=== PATIENT | female | born 1960 | race Caucasian/White ===

== ENCOUNTER 2018-02-11 12:32 | Inpatient (IN) | payer OTHER ==
[~2018-02-11] VITALS: Ht 149.9 cm; Wt 113.0 kg
[~2018-02-11 12:32] MED LIST: ASPECOTC PO; CEPH500C2 PO; SULF800T23 PO
[2018-02-11] MEDS ORDERED: SODIUM CHLORIDE 0.9% 500ML 500 ML IV STA ×2 (13:15→15:11)
[2018-02-11] MEDS ORDERED: ALBUT/IPRATROP 3MG/0.5MG NEB 3 ML VIAL INH STA (13:15)
--- NOTE | 2018-02-11 13:51 | EMERGENCY ROOM VISIT NOTE ---
History First contact with patient: 13:00 Chief Complaint: FEVER Stated Complaint: FEVER History of Present Illness The patient is a 58 year old female who presents to the Emergency Room with complaints of fever symptoms and weakness over the last 3 days. The patient was seen here on February 07. She had a boil lanced in between her right thumb and index finger. She was prescribed Keflex and Bactrim, which she thinks is making her feel ill. She stopped the medication 2 days ago. She continues to feel not well. She has not been eating well. She has had mild nausea. She also reports a headache, which is unusual for her. She has not tried anything [id number] for pain. She has not taken her temperature at home. This is not the worst headache of her life. She denies any chest pain or shortness of breath. No abdominal pain. Review of Systems 10 system review performed and negative unless noted in HPI or below Past Medical/Surgical History History of CVA Social History Smoking Status: Current Every Day Smoker Housing Status: lives alone Occupation Status: retired Current/Historical Medications Scheduled Aspirin (Aspirin), 325 MG PO DAILY Cephalexin Monohydrate (Keflex), 500 MG PO TID Sulfa/Trimethoprim (Bactrim Ds 800MG/160MG), 1 TAB PO BID Physical Exam Vital Signs Date Time Temp Pulse Resp B/P (MAP) Pulse Ox O2 Delivery O2 Flow Rate FiO2 02/11/18 16:32 96 16 114/68 94 Room Air 02/11/18 15:02 89 21 123/66 96 Room Air 02/11/18 14:17 87 16 99 02/11/18 14:14 85 02/11/18 14:10 106/65 02/11/18 12:39 37.3 97 20 116/62 93 Room Air Physical Exam VITALS: Vitals are noted on the nurse's note and reviewed by myself. Vital signs stable. GENERAL: 58-year-old female, in no acute distress, nondiaphoretic, well- developed well-nourished. SKIN: Well-healing incision noted to the webspace between the right thumb and right index finger. No erythematous streaking noted.. HEAD: Normocephalic atraumatic. EYES: Pupils equal round and reactive to light and accommodation. Conjunctivae without injection, sclerae without icterus. Extraocular movements intact. . MOUTH: Mucous membranes slightly dry NECK: Supple without nuchal rigidity. No lymphadenopathy. Cervical spine is nontender. No JVD. HEART: Regular rate and rhythm without murmurs gallops or rubs. LUNGS: Rhonchorous breath sounds bilaterally. Mild use. No crackles at the bases. Mild tachypnea noted. ABDOMEN: Positive bowel sounds x 4.Soft, nontender, without organomegaly. No guarding or rebound tenderness. MUSCULOSKELETAL: No muscle atrophy, erythema, or edema noted. Strength 5/5 throughout. NEURO: Patient was alert and oriented to person place and time. Cranial nerves grossly intact. Cerebellar function intact. Normal sensation to touch. No focal neurological deficits. Medical Decision & Procedures ER Provider Diagnostic Interpretation: CT of the head without contrast IMPRESSION: No acute intracranial findings. Electronically signed by: Bubba Pulido M.D. 02/11/2018 3:03 PM Chest x-ray IMPRESSION: No acute process. The above report was generated using voice recognition software. It may contain grammatical, syntax or spelling errors. Electronically signed by: Mynor Cevallos M.D. 02/11/2018 2:21 PM Laboratory Results 02/11/18 14:06 Red Blood Count 5.00, Mean Corpuscular Volume 87.2, Mean Corpuscular Hemoglobin 30.0, Mean Corpuscular Hemoglobin Concent 34.4, Mean Platelet Volume 10.8, Neutrophils (%) (Auto) 65.9, Lymphocytes (%) (Auto) 21.6, Monocytes (%) (Auto) 11.8, Eosinophils (%) (Auto) 0.0, Basophils (%) (Auto) 0.3, Neutrophils # (Auto ) 7.64, Lymphocytes # (Auto) 2.50, Monocytes # (Auto) 1.37, Eosinophils # (Auto ) 0.00, Basophils # (Auto) 0.04 02/11/18 14:06 Test 02/11/18 14:06 02/11/18 16:15 White Blood Count 11.60 K/uL (4.8-10.8) Red Blood Count 5.00 M/uL (4.2-5.4) Hemoglobin 15.0 g/dL (12.0-16.0) Hematocrit 43.6 % (37-47) Mean Corpuscular Volume 87.2 fL (80-100) Mean Corpuscular Hemoglobin 30.0 pg (25-34) Mean Corpuscular Hemoglobin Concent 34.4 g/dl (32-36) Platelet Count 216 K/uL (130-400) Mean Platelet Volume 10.8 fL (7.4-10.4) Neutrophils (%) (Auto) 65.9 % Lymphocytes (%) (Auto) 21.6 % Monocytes (%) (Auto) 11.8 % Eosinophils (%) (Auto) 0.0 % Basophils (%) (Auto) 0.3 % Neutrophils # (Auto) 7.64 K/uL (1.4-6.5) Lymphocytes # (Auto) 2.50 K/uL (1.2-3.4) Monocytes # (Auto) 1.37 K/uL (0.11-0.59) Eosinophils # (Auto) 0.00 K/uL (0-0.5) Basophils # (Auto) 0.04 K/uL (0-0.2) RDW Standard Deviation 43.3 fL (36.4-46.3) RDW Coefficient of Variation 13.6 % (11.5-14.5) Immature Granulocyte % (Auto) 0.4 % Immature Granulocyte # (Auto) 0.05 K/uL (0.00-0.02) Anion Gap 9.0 mmol/L (3-11) Estimated GFR () 85.7 Estimated GFR (Non- 73.9 BUN/Creatinine Ratio 10.0 (10-20) Calcium Level 9.0 mg/dl (8.5-10.1) Total Bilirubin 0.6 mg/dl (0.2-1) Aspartate Amino Transf (AST/SGOT) 22 U/L (15-37) Alanine Aminotransferase (ALT/SGPT) 31 U/L (12-78) Alkaline Phosphatase 54 U/L (45-117) Troponin I < 0.015 ng/ml (0-0.045) Total Protein 8.4 gm/dl (6.4-8.2) Albumin 3.6 gm/dl (3.4-5.0) Globulin 4.8 gm/dl (2.5-4.0) Albumin/Globulin Ratio 0.8 (0.9-2) Urine Color YELLOW Urine Appearance CLOUDY (CLEAR) Urine pH 5.5 (4.5-7.5) Urine Specific [place] 1.018 (1.000-1.030) Urine Protein NEG (NEG) Urine Glucose (UA) NEG (NEG) Urine Ketones 1+ (NEG) Urine Occult Blood 1+ (NEG) Urine Nitrite NEG (NEG) Urine Bilirubin NEG (NEG) Urine Urobilinogen NEG (NEG) Urine Leukocyte Esterase NEG (NEG) Urine WBC (Auto) 1-5 /hpf (0-5) Urine RBC (Auto) 0-4 /hpf (0-4) Urine Hyaline Casts (Auto) 1-5 /lpf (0-5) Urine Epithelial Cells (Auto) >30 /lpf (0-5) Urine Bacteria (Auto) NEG (NEG) Urine Pathogenic Casts /lpf (0) Medications Administered Medications (Trade) Dose Ordered Sig/Dequan Route Start Time Stop Time Status Last Admin Dose Admin Sodium Chloride 500 ml @ 999 mls/hr Q31M STAT IV 02/11/18 13:15 02/11/18 13:45 DC 02/11/18 14:14 999 MLS/HR Albuterol/ Ipratropium (Duoneb) 3 ml ONE STAT INH 02/11/18 13:15 02/11/18 13:18 DC 02/11/18 14:12 3 ML Sodium Chloride 500 ml @ 999 mls/hr Q31M STAT IV 02/11/18 15:11 02/11/18 15:41 DC 02/11/18 15:11 999 MLS/HR Nicotine (Nicoderm Cq 21MG Patch) 1 patch ONE STAT TD 02/11/18 16:24 02/11/18 16:25 DC 02/11/18 16:31 1 PATCH ECG Per My Interpretation Indication: weakness Rate (beats per minute): 82 Rhythm: normal sinus Comparison ECG Date: no prior available ED Course Patient was seen and examined Vital signs including blood pressure were reviewed medications list was verified with patient Labs were obtained, and a saline lock was established The patient was hydrated with 500 cc of normal saline. She was given a DuoNeb. Imaging was performed and reviewed The patient was reassessed. We discussed her workup. She voiced understanding. She was ordered an additional normal saline 500 cc bolus. The case was also discussed with my supervising physician who personally evaluated the patient I discussed the case with case management and subsequently the [facility] hospitalist service. They kindly agreed to evaluate the patient for further treatment/possible admission Medical Decision Differential diagnosis: Adverse medication reaction, nausea, dehydration, intracranial abnormality, infectious etiology, cardiac ischemia, hypoxia among others were considered This patient is a 58-year-old female presents to the emergency department complaining of malaise and weakness for the last several days. She was also complaining of a headache. She recently had an infection opened up on her right hand. On exam, her hand is healing well. She was afebrile. She is not hypoxic. She did have significant rhonchorous breath sounds-she is a 1 pack per day smoker. She was neurologically intact. I ordered a CT of the head. This had no acute findings. Labs reveal hyponatremia. She also has a small white count. The etiology of these is unclear. Given the patient's symptoms and sodium, I thought the patient should be evaluated for possible admission to the hospital. She is in agreement. This chart was completed in part utilizing [employer] Speech Voice Recognition software. Attempts were made to minimize the grammatical errors, random word insertions, pronoun errors and incomplete sentences. Any formal questions or concerns about the content, text or information contained within the body of this dictation should be directly addressed to the provider for clarification. Medication Reconcilliation Current Medication List: was personally reviewed by me Blood Pressure Screening Patient's blood pressure: Normal blood pressure Consults Consulting Physician: [facility] Impression Primary Impression: Hyponatremia Departure Information Referrals Tramaine Bautista D.O. (PCP) Patient Instructions My [facility]
--- NOTE | 2018-02-11 14:22 | DIAGNOSTIC IMAGING REPORT ---
CHEST ONE VIEW PORTABLE HISTORY: 58 years-old Female rhonchi weakness acute weakness COMPARISON: None available TECHNIQUE: Portable AP view of the chest FINDINGS: Cardiomediastinal and hilar silhouettes are within normal limits. No pneumothorax, pleural effusion, focal airspace consolidation or overt pulmonary edema. Bones of the chest appear grossly intact. Fusion hardware of the lower cervical spine. IMPRESSION: No acute process. The above report was generated using voice recognition software. It may contain grammatical, syntax or spelling errors. Electronically signed by: Mynor Cevallos M.D. 02/11/2018 2:21 PM Dictated Date/Time: 02/11/2018 2:20 PM
[2018-02-11 14:34] LABS: BASO % 0.3 %; BASO ABS # 0.04 K/uL (0-0.2); HEMATOCRIT 43.6 % (37-47); IG# 0.05 K/uL (0.00-0.02); LYMPH % 21.6 %; MEAN CELL VOLUME 87.2 fL (80-100); MEAN CORPUSCULAR HGB CONC 34.4 g/dl (32-36); MEAN PLATELET VOLUME 10.8 fL (7.4-10.4); MONO % 11.8 %; MONO ABS # 1.37 K/uL (0.11-0.59); NEUT % 65.9 %; NEUT ABS # 7.64 K/uL (1.4-6.5); PLATELET COUNT 216 K/uL (130-400); RED CELL DISTRIBUTION WIDTH CV 13.6 % (11.5-14.5); RED CELL DISTRIBUTION WIDTH SD 43.3 fL (36.4-46.3)
[2018-02-11 15:02] LABS: ALBUMIN 3.6 gm/dl (3.4-5.0); ALKALINE PHOSPHATASE 54 U/L (45-117); ALT/SGPT 31 U/L (12-78); AST/SGOT 22 U/L (15-37); BLOOD UREA NITROGEN 9 mg/dl (7-18); CARBON DIOXIDE 25 mmol/L (21-32); CREATININE 0.86 mg/dl (0.60-1.20); GLUCOSE 124 mg/dl (70-99); POTASSIUM 3.9 mmol/L (3.5-5.1); SODIUM 129 mmol/L (136-145); TOTAL PROTEIN 8.4 gm/dl (6.4-8.2)
--- NOTE | 2018-02-11 15:05 | DIAGNOSTIC IMAGING REPORT ---
CT OF THE HEAD WITHOUT CONTRAST CLINICAL HISTORY: Headache. Evaluate for cerebrovascular accident. COMPARISON STUDY: No previous studies for comparison. CT DOSE: 638.56 mGycm TECHNIQUE: Helical axial images of the head were obtained without IV contrast. Automated exposure control was utilized for the study. A dose lowering technique was utilized adhering to the principles of ALARA. FINDINGS: No acute intracranial hemorrhage, midline shift or mass effect is present. Ventricular system is normal. Basilar cisterns are patent. There are no extra-axial collections. Kirby-white differentiation is maintained. There are no findings to suggest acute dural sinus thrombosis or acute territorial infarct. There are no significant calvarial abnormalities. Visualized portions of the sinuses and mastoid air cells are clear. IMPRESSION: No acute intracranial findings. Electronically signed by: Bubba Pulido M.D. 02/11/2018 3:03 PM Dictated Date/Time: 02/11/2018 2:57 PM
[2018-02-11] MEDS ORDERED: NICOTINE 21 MG/24 HR TDSY TD STA (16:24)
--- NOTE | 2018-02-11 17:00 | EMERGENCY ROOM VISIT NOTE ---
ED Visit Note First contact with patient: 13:00 Patient was seen by our PA/BROOM HANDLE DIPPER. I was involved in the patient's care and did evaluate the patient myself. I was involved in the care throughout the ER stay. Patient presents weak. She has a white count elevation and a low sodium. She does live independently and is not able to care for herself in her current situation, a hospital stay is warranted. She needs IV hydration and further workup.
[2018-02-11] MEDS ORDERED: ALBUTEROL 0.083% NEBU SOLN 3 ML VIAL INH PRN (18:00)
[2018-02-11] MEDS ORDERED: ONDANSETRON INJ 2 MG/ML 2 ML VIAL IV PRN (18:00)
[2018-02-11] MEDS ORDERED: LEVOFLOXACIN 250 MG TAB PO STA (18:05)
--- NOTE | 2018-02-11 18:10 | History and Physical ---
History & Physical Date & Time of Service: Feb 11, 2018 at 17:55 Chief Complaint: FEVER Primary Care Physician: Tramaine Bautista D.O. History of Present Illness Source: patient She is a 58-year-old obese female with significant past medical history of toe kyphosis with multiple joint surgery in the past and apparently she was seen in ER last for a hand while which was drained and she was put on oral Keflex and Bactrim. She took the medicine for 3 days neuro and she was not feeling any better, complaining of increasing weakness tiredness and passing more urine without any dysuria she also complained to have feverish feeling with sweating at times and pain in multiple joints and also headache associated with it. She continues to smoke and she has cough,nonproductive with wheezing at times. In the ER she was afebrile with minimal elevated white count and unremarkable chest x-ray and/or in the examination but her sodium was noted to be 129. From that point she was admitted to medical floor for continuation of care with the possible diagnosis of acute bronchitis on top of hyponatremia. Past Medical/Surgical History Medical Problems: (1) Abscess of right hand (2) Acute bronchitis (3) Generalized weakness Social History Smoking Status: Current Every Day Smoker Smokeless Tobacco Use: No Alcohol Use: occasionally Drug Use: none Marital Status: Housing status: lives alone Occupational Status: retired Immunizations History of Influenza Vaccine: Unknown History of Tetanus Vaccine?: Unknown History of Pneumococcal: Unknown History of Hepatitis B Vaccine: Unknown Allergies Coded Allergies: Sulfamethoxazole w/Trimethoprim (Unverified Adverse Reaction, Unknown, /, 02/11/18) made patient very ill Home Medications Scheduled Aspirin (Aspirin), 325 MG PO DAILY Cephalexin Monohydrate (Keflex), 500 MG PO TID Sulfa/Trimethoprim (Bactrim Ds 800MG/160MG), 1 TAB PO BID Review of Systems Constitutional: + fever, + weakness Respiratory: + cough, + wheezing, + shortness of breath Genitourinary - Female: + urinary frequency Neurologic: + weakness (legs) Endocrine: + excessive urination Physical Exam Vital Signs Date Time Temp Pulse Resp B/P (MAP) Pulse Ox O2 Delivery O2 Flow Rate FiO2 02/11/18 16:32 96 16 114/68 94 Room Air 02/11/18 15:02 89 21 123/66 96 Room Air 02/11/18 14:17 87 16 99 02/11/18 14:14 85 02/11/18 14:10 106/65 02/11/18 12:39 37.3 97 20 116/62 93 Room Air General Appearance: + mild distress Head: normocephalic Eyes: normal inspection ENT: normal ENT inspection Neck: supple, no adenopathy, thyroid normal Respiratory/Chest: + decreased breath sounds, + rhonchi, + wheezing Cardiovascular: regular rate, rhythm Abdomen/GI: normal bowel sounds, non tender Back: normal inspection Extremities/Musculoskelatal: + pedal edema (Bilateral Lymphedema) Neurologic/Psych: normal mood/affect, normal reflexes Skin: normal color Lymphatic: no adenopathy Diagnostics Laboratory Results Results Past 24 Hours Test 02/11/18 14:06 02/11/18 15:23 02/11/18 16:15 Range/Units White Blood Count 11.60 4.8-10.8 K/uL Red Blood Count 5.00 4.2-5.4 M/uL Hemoglobin 15.0 12.0-16.0 g/dL Hematocrit 43.6 37-47 % Mean Corpuscular Volume 87.2 80-100 fL Mean Corpuscular Hemoglobin 30.0 25-34 pg Mean Corpuscular Hemoglobin Concent 34.4 32-36 g/dl Platelet Count 216 130-400 K/uL Mean Platelet Volume 10.8 7.4-10.4 fL Neutrophils (%) (Auto) 65.9 % Lymphocytes (%) (Auto) 21.6 % Monocytes (%) (Auto) 11.8 % Eosinophils (%) (Auto) 0.0 % Basophils (%) (Auto) 0.3 % Neutrophils # (Auto) 7.64 1.4-6.5 K/uL Lymphocytes # (Auto) 2.50 1.2-3.4 K/uL Monocytes # (Auto) 1.37 0.11-0.59 K/uL Eosinophils # (Auto) 0.00 0-0.5 K/uL Basophils # (Auto) 0.04 0-0.2 K/uL RDW Standard Deviation 43.3 36.4-46.3 fL RDW Coefficient of Variation 13.6 11.5-14.5 % Immature Granulocyte % (Auto) 0.4 % Immature Granulocyte # (Auto) 0.05 0.00-0.02 K/uL Sodium Level 129 136-145 mmol/L Potassium Level 3.9 3.5-5.1 mmol/L Chloride Level 95 98-107 mmol/L Carbon Dioxide Level 25 21-32 mmol/L Anion Gap 9.0 3-11 mmol/L Blood Urea Nitrogen 9 7-18 mg/dl Creatinine 0.86 0.60-1.20 mg/dl Estimated GFR () 85.7 Estimated GFR (Non- 73.9 BUN/Creatinine Ratio 10.0 10-20 Random Glucose 124 70-99 mg/dl Calcium Level 9.0 8.5-10.1 mg/dl Total Bilirubin 0.6 0.2-1 mg/dl Aspartate Amino Transf (AST/SGOT) 22 15-37 U/L Alanine Aminotransferase (ALT/SGPT) 31 12-78 U/L Alkaline Phosphatase 54 45-117 U/L Troponin I < 0.015 0-0.045 ng/ml Total Protein 8.4 6.4-8.2 gm/dl Albumin 3.6 3.4-5.0 gm/dl Globulin 4.8 2.5-4.0 gm/dl Albumin/Globulin Ratio 0.8 0.9-2 Urine Color YELLOW Urine Appearance CLOUDY CLEAR Urine pH 5.5 4.5-7.5 Urine Specific [place] 1.018 1.000-1.030 Urine Protein NEG NEG Urine Glucose (UA) NEG NEG Urine Ketones 1+ NEG Urine Occult Blood 1+ NEG Urine Nitrite NEG NEG Urine Bilirubin NEG NEG Urine Urobilinogen NEG NEG Urine Leukocyte Esterase NEG NEG Urine WBC (Auto) 1-5 0-5 /hpf Urine RBC (Auto) 0-4 0-4 /hpf Urine Hyaline Casts (Auto) 1-5 0-5 /lpf Urine Epithelial Cells (Auto) >30 0-5 /lpf Urine Bacteria (Auto) NEG NEG Urine Pathogenic Casts 0 /lpf Microbiology Results 02/11/18 Blood Culture, Received Pending 02/11/18 Blood Culture, Received Pending 02/11/18 Urine Culture, Received Pending Diagnostic Radiology CT of the Head-negative CXR normal Normal EKG Impression Assessment and Plan Hyponatremia She has been having polyuria but no dysuria Do not know that because for hyponatremia but may be related to back use of Bactrim Could be secondary to bronchitis with atypical organisms Will give adequate amount of intravenous fluid and monitor sodium level Fever with chills No acute infiltration on chest x-ray Has right basilar crackles more than the left Doubt any UTI with them unremarkable UA examination We will start Levaquin orally Status post I and D involving the right thumb and index finger web No surrounding inflammation and/or ulceration To 3 days of oral Keflex and Bactrim DS No more antibiotic for this. History of arthrogryposis with multiple joint surgery Patient is mobile with the wheelchair She has bilateral lymphedema as well Has been on aspirin 325 mg prevent any thrombosis Tobacco use disorder Advised to quit smoking We will put her on nicotine patch CODE STATUS; level 3, that is resuscitation without mechanical ventilation In my clinical assessment the beneficially meets criteria as per CMS for 2 midnights astay in the hospital Resuscitation Status VTE Prophylaxis Will order VTE Prophylaxis: Yes
[2018-02-11 18:41] LABS: INR 1.1 (0.9-1.1); PTT PATIENT 36.4 SECONDS (21.0-31.0)
[2018-02-11] MEDS: NSS + 20MEQ KCL 1000ML 1,000 ML IV SCH (21:06)
[2018-02-11] MEDS: HEPARIN SOD 5000 UNIT/0.5 ML CARP SQ SCH (21:54)
[2018-02-11] MEDS ORDERED: IV FLUIDS COMPLETED PRN (22:00)
[2018-02-11 22:58] VITALS: BP 160/74; PULSE 88; TEMP 38.2; O2SAT 94
[2018-02-12] MEDS ORDERED: LORAZEPAM 0.5 MG TAB PO ONE (02:00)
[2018-02-12] MEDS: ACETAMINOPHEN 325 MG TAB PO PRN (02:33)
[2018-02-12] MEDS: HEPARIN SOD 5000 UNIT/0.5 ML CARP SQ SCH ×3 (06:00→20:25)
[2018-02-12] MEDS: NSS + 20MEQ KCL 1000ML 1,000 ML IV SCH (06:12)
[2018-02-12 07:03] LABS: POTASSIUM RANDOM URINE 6.1 mEq/L
[2018-02-12 07:43] VITALS: BP 131/69; PULSE 77; TEMP 37; O2SAT 97
[2018-02-12 08:10] VITALS: O2SAT 97
[2018-02-12 08:19] LABS: HEMATOCRIT 42.5 % (37-47); MEAN CELL VOLUME 88.2 fL (80-100); MEAN CORPUSCULAR HGB CONC 32.9 g/dl (32-36); MEAN PLATELET VOLUME 10.4 fL (7.4-10.4); PLATELET COUNT 221 K/uL (130-400); RED CELL DISTRIBUTION WIDTH CV 13.6 % (11.5-14.5); RED CELL DISTRIBUTION WIDTH SD 44.3 fL (36.4-46.3); WHITE BLOOD COUNT 11.17 K/uL (4.8-10.8)
[2018-02-12] MEDS: ASPIRIN 325 MG ECTAB PO SCH (08:29)
[2018-02-12] MEDS: NICOTINE 14 MG/24 HR TDSY TD SCH (08:30)
[2018-02-12 08:47] LABS: BLOOD UREA NITROGEN 9 mg/dl (7-18); CALCIUM 8.2 mg/dl (8.5-10.1); CARBON DIOXIDE 27 mmol/L (21-32); CREATININE 0.71 mg/dl (0.60-1.20); GLUCOSE 89 mg/dl (70-99); SODIUM 136 mmol/L (136-145)
[2018-02-12] MEDS: LEVOFLOXACIN 500 MG TAB PO SCH (10:15)
[2018-02-12 15:46] VITALS: BP 153/85; PULSE 97; TEMP 38.2; O2SAT 94
--- NOTE | 2018-02-12 19:14 | Progress Note ---
Progress Note Date of Service Feb 12, 2018. Progress Note Subjective: Patient denies chest pain or acute shortness of breath. Patient denies abdominal pain. Patient reports previous symptoms primarily on admission of feeling weakness primarily and less functional than her baseline Physical exam General Appearance: no distress Head: normocephalic Eyes: normal inspection ENT: normal ENT inspection Neck: supple, midline trachea, no JVD Respiratory/Chest: fair air entry, no wheezing Cardiovascular: regular rate, rhythm Abdomen/GI: normal bowel sounds, non tender Back: normal inspection Extremities/Musculoskelatal: Bilateral Lymphedema Neurologic: awake and alert Assessment and Plan Hyponatremia admission serum sodium 129 and resolved after IV fluids. IV fluids stopped. Will repeat serum sodium tomorrow reports polyuria - has low urine osmolality on admission Reported fever and chills; generalized weakness patient's body temperature does not appear to meet criteria for low grade fevers but has been mildly above 100F there is a leukocytosis above 10,000; will send ESR, CRP empirically have been on Levaquin for possible bronchitis. No acute infiltration on admission chest x-ray; continue Levaquin for now blood cultures are pending results urine culture is negative Status post I and D involving the right thumb and index finger web previously; No surrounding inflammation and/or ulceration History of arthrogryposis with multiple joint surgery Patient is mobile with the wheelchair has bilateral lymphedema as well has been on aspirin 325 mg prevent any thrombosis Tobacco use disorder Advised to quit smoking nicotine patch social work discharge evaluation requested DVT ppx: heparin subcut CODE STATUS; level 3, that is resuscitation without mechanical ventilation
[2018-02-12 20:32] VITALS: BP 151/79; PULSE 86; TEMP 37.4; O2SAT 93
[2018-02-12 22:55] VITALS: BP 148/75; PULSE 86; TEMP 37.2; O2SAT 93
[2018-02-12] MEDS: LORAZEPAM 0.5 MG TAB PO PRN (23:39)
[2018-02-13] MEDS: HEPARIN SOD 5000 UNIT/0.5 ML CARP SQ SCH ×3 (06:00→20:31)
[2018-02-13 07:00] VITALS: BP 155/84; PULSE 83; TEMP 37.4; O2SAT 94
[2018-02-13] MEDS: ASPIRIN 325 MG ECTAB PO SCH (08:23)
[2018-02-13] MEDS: NICOTINE 14 MG/24 HR TDSY TD SCH (08:25)
[2018-02-13 09:24] LABS: BASO % 0.3 %; BASO ABS # 0.04 K/uL (0-0.2); EOS % 0.5 %; EOS ABS # 0.06 K/uL (0-0.5); HEMATOCRIT 39.4 % (37-47); HEMOGLOBIN 13.6 g/dL (12.0-16.0); IG# 0.06 K/uL (0.00-0.02); LYMPH % 24.5 %; LYMPH ABS # 2.97 K/uL (1.2-3.4); MEAN CELL VOLUME 86.8 fL (80-100); MEAN CORPUSCULAR HGB CONC 34.5 g/dl (32-36); MEAN PLATELET VOLUME 10.5 fL (7.4-10.4); MONO % 14.3 %; MONO ABS # 1.73 K/uL (0.11-0.59); NEUT % 59.9 %; NEUT ABS # 7.24 K/uL (1.4-6.5); PLATELET COUNT 251 K/uL (130-400); RED CELL DISTRIBUTION WIDTH CV 13.4 % (11.5-14.5); RED CELL DISTRIBUTION WIDTH SD 42.9 fL (36.4-46.3)
[2018-02-13 10:01] LABS: ALKALINE PHOSPHATASE 43 U/L (45-117); ALT/SGPT 24 U/L (12-78); AST/SGOT 17 U/L (15-37); BLOOD UREA NITROGEN 8 mg/dl (7-18); CALCIUM 8.5 mg/dl (8.5-10.1); CARBON DIOXIDE 25 mmol/L (21-32); CREATININE 0.63 mg/dl (0.60-1.20); GLUCOSE 87 mg/dl (70-99); POTASSIUM 3.5 mmol/L (3.5-5.1); SODIUM 129 mmol/L (136-145); TOTAL PROTEIN 7.4 gm/dl (6.4-8.2)
[2018-02-13] MEDS: LEVOFLOXACIN 500 MG TAB PO SCH (11:06)
[2018-02-13 12:03] VITALS: TEMP 37.1
[2018-02-13 13:45] LABS: HEMOGLOBIN A1C 7.6 % (4.5-5.6)
[2018-02-13 15:26] VITALS: BP 134/78; PULSE 75; TEMP 36.8; O2SAT 92
[2018-02-13] MEDS: ACETAMINOPHEN 325 MG TAB PO PRN ×2 (17:43→23:40)
--- NOTE | 2018-02-13 19:19 | Nephrology Consultation ---
Nephrology Consultation Date of Consultation: Feb 13, 2018. Attending Physician: Dr Agrawal Requesting Physician: Dr Agrawal Reason for Consultation: Hyponatremia History of Present Illness 58 year old female admitted 02/11 for evaluation of multiple complaints: weakness and subjective F at home with diffuse arthralgias/myalgias, report of increased urine output after starting keflex/bactrim on 02/07 in the wake of incision/debridement of R hand at [facility] ER. She comes from outside of our health system and so no prior labs for comparison. PMH includes active tobacco abuse, obesity, arthrogoryposis w/ chronic ambulatory dysfunction and as below. No labs were obtained on day of I&D. Her presenting sNa was 129 on 02/11; it improved to 136 on 02/12 w/ urine osms 117 on 02/[address] urine Na 23. Then today her sNa is 129 again. She had 2L NS w/ 20 mEq K until 02/12 AM; also 1L NS in ER as well. She takes asa 325 mg daily from prior to admission d/t hx of stroke 2 yrs ago at [facility]. No nsaid use. Past Medical/Surgical History Medical Problems: (1) Abscess of right hand Status: Acute (2) Hyponatremia Status: Acute -arthrogryposis >> chronic ambulatory dysfunction / w/c dependent -recent hand abscess I&D R thumb/ index finger web -active tobacco abuse -morbid obesity -stroke per pt which is why she's on asa 325 mg daily -chronic lymphedema Social History Smoking Status: Current Every Day Smoker Drug Use: none Marital Status: Housing Status: lives alone Occupation Status: retired Allergies Coded Allergies: Sulfamethoxazole w/Trimethoprim (Unverified Adverse Reaction, Unknown, /, 02/11/18) made patient very ill Medications Current Inpatient Medications Medications (Trade) Dose Ordered Sig/Dequan Route Start Time Stop Time Status Last Admin Dose Admin Heparin Sodium (Porcine) (Heparin Sq 5000 Unit/0.5ml) 5,000 unit Q8H SQ 02/11/18 22:00 03/13/18 21:59 Ondansetron HCl (Zofran Inj) 4 mg Q6H PRN IV 02/11/18 18:00 03/13/18 17:59 Aspirin (Ecotrin Tab) 325 mg DAILY PO 02/12/18 08:00 03/14/18 08:59 02/13/18 08:23 325 MG Levofloxacin (Levaquin Tab) 500 mg DAILY@11 PO 02/12/18 11:00 02/19/18 10:59 02/13/18 11:06 500 MG Albuterol Sulfate (Ventolin 0.083% 2.5MG/3ML Neb) 2.5 mg Q6R PRN INH 02/11/18 18:00 03/13/18 17:59 Nicotine (Nicoderm Cq 14MG Patch) 1 patch QAM TD 02/12/18 08:00 03/14/18 08:59 02/13/18 08:25 1 PATCH Miscellaneous (Remove Nicoderm Patch) 1 ea HS N/A 02/11/18 21:00 03/13/18 20:59 Miscellaneous (Iv Fluids Completed) 1 ea PRN PRN N/A 02/11/18 22:00 02/11/19 21:59 Acetaminophen (Tylenol Tab) 650 mg Q6H PRN PO 02/12/18 01:45 03/14/18 01:44 02/13/18 17:43 650 MG Lorazepam (Ativan Tab) 0.25 mg HS PRN PO 02/12/18 21:00 03/14/18 20:59 02/12/18 23:39 0.25 MG Home Meds and Scripts Medications Dose Route/Sig Max Daily Dose Days Date Category Aspirin 325 Mg Tab 325 Mg PO DAILY 02/07/18 Reported Bactrim Ds 800MG/160MG (Trimethoprim/Sulfamethoxazole) Tab 1 Tab PO BID 7 02/07/18 Rx Keflex (Cephalexin Monohydrate) 500 Mg Cap 500 Mg PO TID 7 02/07/18 Rx Review of Systems Constitutional: + problem reported (subjective fever, diffuse pain w/ mvt, photophobia, hyperesthesia) ENT: + pain on swallowing (sore throat) Respiratory: + cough (chronic stable nonproductive) Cardiac: + edema (stable chronic), No chest pain Abdomen: + constipation, No pain, No nausea, No vomiting Musculoskeletal: + joint pain, + muscle pain Female : + problem reported (c/o polyuria w/ increased po intake) Neuro: + weakness, + balance problems, No memory loss Psych: + anxiety Heme: No abnormal bleeding/bruising Endo: + fatigue Physical Exam Date Time Temp Pulse Resp B/P (MAP) Pulse Ox O2 Delivery O2 Flow Rate FiO2 02/13/18 16:00 Room Air 02/13/18 15:26 36.8 75 18 134/78 (96) 92 Room Air 02/13/18 12:03 37.1 02/13/18 07:45 Room Air 02/13/18 07:00 37.4 83 18 155/84 (107) 94 Room Air 02/12/18 22:55 37.2 86 18 148/75 (99) 93 Room Air 02/12/18 20:32 37.4 86 18 151/79 (103) 93 Room Air 02/12/18 20:00 Room Air 24-Hour Column 02/14/18 08:00 Intake Total 300 ml Balance 300 ml General Appearance: WD/WN, + mild distress (anxious), + obese, + pertinent finding (lying flat on RA, avoids mvt for exam) Eyes: EOMI ENT: hearing grossly normal Neck: supple Respiratory/Chest: no respiratory distress, + decreased breath sounds, + wheezing (scattered exp wheeze) Cardiovascular: regular rate, rhythm Abdomen: normal bowel sounds, non tender, soft, + pertinent finding (no miles) Extremities: + pedal edema, + swelling, + pertinent finding (joint deformities keya BL ankles/ knees) Neurologic/Psych: alert, oriented x 3, + pertinent finding (anxious) Skin: no jaundice, warm/dry, no rash Diagnostics Last 24 Hours Test 02/13/18 08:37 White Blood Count 12.10 K/uL Red Blood Count 4.54 M/uL Hemoglobin 13.6 g/dL Hematocrit 39.4 % Mean Corpuscular Volume 86.8 fL Mean Corpuscular Hemoglobin 30.0 pg Mean Corpuscular Hemoglobin Concent 34.5 g/dl Platelet Count 251 K/uL Mean Platelet Volume 10.5 fL Neutrophils (%) (Auto) 59.9 % Lymphocytes (%) (Auto) 24.5 % Monocytes (%) (Auto) 14.3 % Eosinophils (%) (Auto) 0.5 % Basophils (%) (Auto) 0.3 % Neutrophils # (Auto) 7.24 K/uL Lymphocytes # (Auto) 2.97 K/uL Monocytes # (Auto) 1.73 K/uL Eosinophils # (Auto) 0.06 K/uL Basophils # (Auto) 0.04 K/uL RDW Standard Deviation 42.9 fL RDW Coefficient of Variation 13.4 % Immature Granulocyte % (Auto) 0.5 % Immature Granulocyte # (Auto) 0.06 K/uL Erythrocyte Sedimentation Rate 53 mm/hr Sodium Level 129 mmol/L Potassium Level 3.5 mmol/L Chloride Level 95 mmol/L Carbon Dioxide Level 25 mmol/L Anion Gap 9.0 mmol/L Blood Urea Nitrogen 8 mg/dl Creatinine 0.63 mg/dl Estimated GFR () 113.8 Estimated GFR (Non- 98.2 BUN/Creatinine Ratio 12.1 Random Glucose 87 mg/dl Estimated Average Glucose 171 mg/dl Hemoglobin A1c 7.6 % Calcium Level 8.5 mg/dl Total Bilirubin 0.6 mg/dl Aspartate Amino Transf (AST/SGOT) 17 U/L Alanine Aminotransferase (ALT/SGPT) 24 U/L Alkaline Phosphatase 43 U/L C-Reactive Protein 9.48 mg/dl Pro-B-Type Natriuretic Peptide 158 pg/ml Total Protein 7.4 gm/dl Albumin 3.0 gm/dl Globulin 4.4 gm/dl Albumin/Globulin Ratio 0.7 Diagnostic Radiology: cxr > no acute cp process head CT >> no acute i-c process Assessment & Plan 58 y/o F w/ active tobacco abuse, obesity, deconditioning, reported past stroke admitted for evaluation of subjective F, subjective polyuria, worsened chronic weakness, diffuse arthralgias, hyperesthesias, photophobia after starting bactrim/keflex on 02/07 after hand abscess debridement and in setting of possible bronchitis hyponatremia, chronicity unknown in obese/sedentery pt whose volume status is challenging to assess; not symptomatic at this time -bactrim can cause low serum sodium; so can full dose aspirin; no prior baseline available -differential includes lung disease, low solute diet, cause by ASA or by bactrim , chronic volume overload >> more data needed keya baseline values -doubt that a sodium in this range is severe enough to cause her presenting or current sx, even if acute change in level -asked for records from PCP office >> last 2 notes and labs past 2 years; also asked for [facility] records -would not give further fluids OR IVF at this point or lasix >> await repeat labs in AM, repeat urine studies -will check serum osms, TSH in am -asked nurses to maintain strict record of intake > no indication for fluid limit just yet, though urine studies at admission suggest polydipsia Appreciate consult; will follow with you.
--- NOTE | 2018-02-13 19:21 | Progress Note ---
Progress Note Date of Service Feb 13, 2018. Progress Note Subjective: Patient denies chest pain or acute shortness of breath. Patient denies abdominal pain. Physical exam General Appearance: no distress Head: normocephalic Eyes: normal inspection ENT: normal ENT inspection Neck: supple, midline trachea, no JVD Respiratory/Chest: fair air entry, no wheezing Cardiovascular: regular rate, rhythm Abdomen/GI: normal bowel sounds, non tender Back: normal inspection Extremities/Musculoskelatal: Bilateral Lymphedema Neurologic: awake and alert Assessment and Plan Hyponatremia reports polyuria - has low urine osmolality on admission admission serum sodium 129 and resolved after IV fluids. IV fluids stopped. However by the AM of 02/13/18 subsequent serum sdoium again 129 Renal consult asked to evaluate and network lead advised repeat labs in AM, repeat urine studies and check serum osms, TSH in am Reported fever and chills; generalized weakness patient's body temperature does not appear to meet criteria for low grade fevers but has been mildly above 100F there is a leukocytosis above 10,000; empirically have been on Levaquin for possible bronchitis. No acute infiltration on admission chest x-ray; ESR, CRP are elevated but admission blood and urine cultures without bacteria will discontinue Levaquin at this time, reconsider antibiotics if febrile Status post I and D involving the right thumb and index finger web previously; No surrounding inflammation and/or ulceration recent bactrim use prior to admission History of arthrogryposis with multiple joint surgery Patient is mobile with the wheelchair has bilateral lymphedema as well has been on aspirin 325 mg prevent any thrombosis (prior to admission d/t hx of stroke 2 yrs ago at [facility]) patient has declined to work with physical therapy services Tobacco use disorder Advised to quit smoking nicotine patch social work discharge evaluation DVT ppx: heparin subcut CODE STATUS; level 3, that is resuscitation without mechanical ventilation
[2018-02-13 22:58] LABS: OSMOLALITY,URINE 159 mOms/kg (500-800)
[2018-02-13 23:02] LABS: SODIUM RANDOM URINE 12 mEq/L
[2018-02-13] MEDS: LORAZEPAM 0.5 MG TAB PO PRN (23:39)
[2018-02-14 00:04] VITALS: BP 138/84; PULSE 74; TEMP 37.1; O2SAT 93
[2018-02-14] MEDS: HEPARIN SOD 5000 UNIT/0.5 ML CARP SQ SCH ×2 (05:57→14:00)
[2018-02-14 06:35] VITALS: BP 141/82; PULSE 74; TEMP 37.1; O2SAT 92
[2018-02-14 06:46] LABS: HEMATOCRIT 41.1 % (37-47); HEMOGLOBIN 14.4 g/dL (12.0-16.0); MEAN CELL VOLUME 86.5 fL (80-100); MEAN CORPUSCULAR HEMOGLOBIN 30.3 pg (25-34); MEAN PLATELET VOLUME 10.2 fL (7.4-10.4); PLATELET COUNT 261 K/uL (130-400); RED CELL DISTRIBUTION WIDTH CV 13.2 % (11.5-14.5); RED CELL DISTRIBUTION WIDTH SD 42.1 fL (36.4-46.3); WHITE BLOOD COUNT 12.04 K/uL (4.8-10.8)
[2018-02-14 07:31] LABS: ALT/SGPT 27 U/L (12-78); AST/SGOT 18 U/L (15-37); BLOOD UREA NITROGEN 10 mg/dl (7-18); CALCIUM 8.7 mg/dl (8.5-10.1); CARBON DIOXIDE 26 mmol/L (21-32); CREATININE 0.61 mg/dl (0.60-1.20); GLUCOSE 96 mg/dl (70-99); POTASSIUM 4.1 mmol/L (3.5-5.1); SODIUM 131 mmol/L (136-145)
[2018-02-14 07:42] LABS: ALKALINE PHOSPHATASE 47 U/L (45-117); TOTAL PROTEIN 7.7 gm/dl (6.4-8.2)
[2018-02-14] MEDS: NICOTINE 14 MG/24 HR TDSY TD SCH (09:01)
[2018-02-14] MEDS: ASPIRIN 325 MG ECTAB PO SCH (09:01)
[2018-02-14] MEDS: ACETAMINOPHEN 325 MG TAB PO PRN (09:04)
[2018-02-14 11:27] VITALS: Ht 149.9 cm; Wt 113.0 kg
--- NOTE | 2018-02-14 13:53 | Progress Note ---
Internal Med Progress Note Date of Service: Feb 14, 2018. Provider Documentation: SUBJECTIVE: Patient reports that she feels well enough to leave the hospital today. She denies chest pain or shortness of breath. Patient was told of abnormal HbA1c results and thyroid results. She agrees to follow up with a primary care doctor after hospital discharge Physical exam General Appearance: no distress Head: normocephalic Eyes: normal inspection ENT: normal ENT inspection Neck: supple, midline trachea, no JVD Respiratory/Chest: fair air entry, no wheezing Cardiovascular: regular rate, rhythm Abdomen/GI: normal bowel sounds, non tender Back: normal inspection Extremities/Musculoskelatal: Bilateral Lymphedema Neurologic: awake and alert ASSESSMENT & PLAN: Hospital Course and Plans Hyponatremia reports polyuria - has low urine osmolality on admission admission serum sodium 129 and resolved after IV fluids. IV fluids stopped. However by the AM of 02/13/18 subsequent serum sodium again 129 Nephrology consult evaluated the patient serum sodium 131 on 02/14/18 urine osmolality improved from 117 to 159 Reported fever and chills; generalized weakness patient's body temperature does not appear to meet criteria for low grade fevers but has been mildly above 100F there is a leukocytosis above 10,000; empirically have been on Levaquin at beginning of this admission for possible bronchitis. No acute infiltration on admission chest x-ray; ESR, CRP are elevated but admission blood and urine cultures without bacteria Levaquin was discontinued on 02/13/18 as there was no source of infection identified TSH of 15 with normal T4 of 6.4 suggests diagnosis of hypothyroidism patient will be started on prescription of Levothyroxine 25 mcg daily patient will need to have follow up with primary care doctor and have thyroid levels rechecked Newly diagnosed diabetes mellitus type II with hemoglobin A1c 7.6 patient will be started on prescription of metformin patient will need to follow up with primary care doctor on diabetes management History of arthrogryposis with multiple joint surgery Patient is mobile with the wheelchair has bilateral lymphedema as well has been on aspirin 325 mg prevent any thrombosis (prior to admission d/t hx of stroke 2 yrs ago at [facility]) patient has declined to work with physical therapy services Tobacco use disorder Advised to quit smoking nicotine patch Hyponatremia Newly diagnosed diabetes mellitus type II with hemoglobin A1c Hypothyroidism Discharge diagnosis Hyponatremia Newly diagnosed diabetes mellitus type II with hemoglobin A1c Hypothyroidism Generalized weakness suspected bronchitis but ruled out Discharge Instructions Discharge to home patient will be started on prescription of metformin patient will be started on prescription of Levothyroxine 25 mcg daily patient will need to have follow up with primary care doctor and have thyroid levels rechecked Newly diagnosed diabetes mellitus type II with hemoglobin A1c 7.6 patient will be started on prescription of metformin patient will need to follow up with primary care doctor on diabetes management Patient has new primary care doctor appointment on 02/18/2018 11:00 AM Mirela Reynoso MD Internal Medicine [facility] Address: [address] [place] [id number] Vital Signs: Date Time Temp Pulse Resp B/P (MAP) Pulse Ox O2 Delivery O2 Flow Rate FiO2 02/14/18 08:15 Room Air 02/14/18 06:35 37.1 74 18 141/82 (101) 92 Room Air 02/14/18 00:04 37.1 74 20 138/84 (102) 93 Room Air 02/14/18 00:01 Room Air 02/13/18 16:00 Room Air 02/13/18 15:26 36.8 75 18 134/78 (96) 92 Room Air Lab Results: Results Past 24 Hours Test 02/13/18 22:00 02/14/18 06:25 Range/Units Urine Osmolality 159 500-800 mOms/kg Urine Random Sodium 12 mEq/L White Blood Count 12.04 4.8-10.8 K/uL Red Blood Count 4.75 4.2-5.4 M/uL Hemoglobin 14.4 12.0-16.0 g/dL Hematocrit 41.1 37-47 % Mean Corpuscular Volume 86.5 80-100 fL Mean Corpuscular Hemoglobin 30.3 25-34 pg Mean Corpuscular Hemoglobin Concent 35.0 32-36 g/dl RDW Standard Deviation 42.1 36.4-46.3 fL RDW Coefficient of Variation 13.2 11.5-14.5 % Platelet Count 261 130-400 K/uL Mean Platelet Volume 10.2 7.4-10.4 fL Sodium Level 131 136-145 mmol/L Potassium Level 4.1 3.5-5.1 mmol/L Chloride Level 96 98-107 mmol/L Carbon Dioxide Level 26 21-32 mmol/L Anion Gap 9.0 3-11 mmol/L Blood Urea Nitrogen 10 7-18 mg/dl Creatinine 0.61 0.60-1.20 mg/dl Estimated GFR () 115.0 Estimated GFR (Non- 99.2 BUN/Creatinine Ratio 16.3 10-20 Random Glucose 96 70-99 mg/dl Osmolality 275 280-300 mOsm/kg Calcium Level 8.7 8.5-10.1 mg/dl Total Bilirubin 0.7 0.2-1 mg/dl Aspartate Amino Transf (AST/SGOT) 18 15-37 U/L Alanine Aminotransferase (ALT/SGPT) 27 12-78 U/L Alkaline Phosphatase 47 45-117 U/L Total Protein 7.7 6.4-8.2 gm/dl Albumin 3.0 3.4-5.0 gm/dl Globulin 4.7 2.5-4.0 gm/dl Albumin/Globulin Ratio 0.6 0.9-2 Thyroid Stimulating Hormone (TSH) 15.000 0.300-4.500 uIu/ml Free Thyroxine 0.92 0.80-1.60 ng/dl Thyroxine (T4) 6.3 4.5-10.9 mcg/dl
[2018-02-14] MEDS ORDERED: LEVO25TA PO (14:45)
[2018-02-14] MEDS ORDERED: GLC500 OR (14:45)
--- NOTE | 2018-02-14 15:06 | Discharge Instructions ---
Discharge Instructions Date of Service Feb 14, 2018. Admission Reason for Admission: Hyponatremia Discharge Discharge Diagnosis / Problem: Hyponatremia, Hypothyrodism, Diabetes Mellitus Type II Discharge Goals Goal(s): Improve function, Improve disease control Activity Recommendations Activity Limitations: per Instructions/Follow-up section . Instructions / Follow-Up Instructions / Follow-Up Hospital Course and Plans Hyponatremia reports polyuria - has low urine osmolality on admission admission serum sodium 129 and resolved after IV fluids. IV fluids stopped. However by the AM of 02/13/18 subsequent serum sodium again 129 Nephrology consult evaluated the patient serum sodium 131 on 02/14/18 urine osmolality improved from 117 to 159 Reported fever and chills; generalized weakness patient's body temperature does not appear to meet criteria for low grade fevers but has been mildly above 100F there is a leukocytosis above 10,000; empirically have been on Levaquin at beginning of this admission for possible bronchitis. No acute infiltration on admission chest x-ray; ESR, CRP are elevated but admission blood and urine cultures without bacteria Levaquin was discontinued on 02/13/18 as there was no source of infection identified TSH of 15 with normal T4 of 6.4 suggests diagnosis of hypothyroidism patient will be started on prescription of Levothyroxine 25 mcg daily patient will need to have follow up with primary care doctor and have thyroid levels rechecked Newly diagnosed diabetes mellitus type II with hemoglobin A1c 7.6 patient will be started on prescription of metformin patient will need to follow up with primary care doctor on diabetes management History of arthrogryposis with multiple joint surgery Patient is mobile with the wheelchair has bilateral lymphedema as well has been on aspirin 325 mg prevent any thrombosis (prior to admission d/t hx of stroke 2 yrs ago at [facility]) patient has declined to work with physical therapy services Tobacco use disorder Advised to quit smoking nicotine patch Hyponatremia Newly diagnosed diabetes mellitus type II with hemoglobin A1c Hypothyroidism Discharge diagnosis Hyponatremia Newly diagnosed diabetes mellitus type II with hemoglobin A1c Hypothyroidism Generalized weakness suspected bronchitis but ruled out Discharge Instructions Discharge to home patient will be started on prescription of metformin patient will be started on prescription of Levothyroxine 25 mcg daily patient will need to have follow up with primary care doctor and have thyroid levels rechecked Newly diagnosed diabetes mellitus type II with hemoglobin A1c 7.6 patient will be started on prescription of metformin patient will need to follow up with primary care doctor on diabetes management Patient has new primary care doctor appointment on 02/18/2018 11:00 AM Mirela Reynoso MD Internal Medicine [facility] Address: [address] [place], [place] [id number] Current Hospital Diet Patient's current hospital diet: Regular Diet Discharge Diet Recommended Diet: Diabetes Type 2 Diet Pending Studies Studies pending at discharge: no Laboratory Results 02/14/18 06:25 02/14/18 06:25 Test 02/11/18 14:06 02/11/18 14:09 02/11/18 16:15 02/11/18 18:18 Troponin I < 0.015 ng/ml (0-0.045) Hepatitis C Antibody Screen NEG (NEG) Urine Color YELLOW Urine Appearance CLOUDY (CLEAR) Urine pH 5.5 (4.5-7.5) Urine Specific [place] 1.018 (1.000-1.030) Urine Protein NEG (NEG) Urine Glucose (UA) NEG (NEG) Urine Ketones 1+ (NEG) Urine Occult Blood 1+ (NEG) Urine Nitrite NEG (NEG) Urine Bilirubin NEG (NEG) Urine Urobilinogen NEG (NEG) Urine Leukocyte Esterase NEG (NEG) Urine WBC (Auto) 1-5 /hpf (0-5) Urine RBC (Auto) 0-4 /hpf (0-4) Urine Hyaline Casts (Auto) 1-5 /lpf (0-5) Urine Epithelial Cells (Auto) >30 /lpf (0-5) Urine Bacteria (Auto) NEG (NEG) Urine Pathogenic Casts /lpf (0) Prothrombin Time 11.4 SECONDS (9.0-12.0) Prothromb Time International Ratio 1.1 (0.9-1.1) Activated Partial Thromboplast Time 36.4 SECONDS (21.0-31.0) Partial Thromboplastin Ratio 1.4 Test 02/12/18 00:00 02/12/18 07:45 02/13/18 08:37 02/13/18 22:00 Urine Random Potassium 6.1 mEq/L Magnesium Level 2.0 mg/dl (1.8-2.4) Immature Granulocyte % (Auto) 0.5 % White Blood Count 12.10 K/uL (4.8-10.8) Red Blood Count 4.54 M/uL (4.2-5.4) Hemoglobin 13.6 g/dL (12.0-16.0) Hematocrit 39.4 % (37-47) Mean Corpuscular Volume 86.8 fL (80-100) Mean Corpuscular Hemoglobin 30.0 pg (25-34) Mean Corpuscular Hemoglobin Concent 34.5 g/dl (32-36) Platelet Count 251 K/uL (130-400) Mean Platelet Volume 10.5 fL (7.4-10.4) Neutrophils (%) (Auto) 59.9 % Lymphocytes (%) (Auto) 24.5 % Monocytes (%) (Auto) 14.3 % Eosinophils (%) (Auto) 0.5 % Basophils (%) (Auto) 0.3 % Neutrophils # (Auto) 7.24 K/uL (1.4-6.5) Lymphocytes # (Auto) 2.97 K/uL (1.2-3.4) Monocytes # (Auto) 1.73 K/uL (0.11-0.59) Eosinophils # (Auto) 0.06 K/uL (0-0.5) Basophils # (Auto) 0.04 K/uL (0-0.2) Immature Granulocyte # (Auto) 0.06 K/uL (0.00-0.02) Erythrocyte Sedimentation Rate 53 mm/hr (0-21) Estimated Average Glucose 171 mg/dl Hemoglobin A1c 7.6 % (4.5-5.6) C-Reactive Protein 9.48 mg/dl (0-0.29) Pro-B-Type Natriuretic Peptide 158 pg/ml (0-900) Urine Osmolality 159 mOms/kg (500-800) Urine Random Sodium 12 mEq/L Test 02/14/18 06:25 Red Blood Count 4.75 M/uL (4.2-5.4) Mean Corpuscular Volume 86.5 fL (80-100) Mean Corpuscular Hemoglobin 30.3 pg (25-34) Mean Corpuscular Hemoglobin Concent 35.0 g/dl (32-36) RDW Standard Deviation 42.1 fL (36.4-46.3) RDW Coefficient of Variation 13.2 % (11.5-14.5) Mean Platelet Volume 10.2 fL (7.4-10.4) Anion Gap 9.0 mmol/L (3-11) Estimated GFR () 115.0 Estimated GFR (Non- 99.2 BUN/Creatinine Ratio 16.3 (10-20) Osmolality 275 mOsm/kg (280-300) Calcium Level 8.7 mg/dl (8.5-10.1) Total Bilirubin 0.7 mg/dl (0.2-1) Aspartate Amino Transf (AST/SGOT) 18 U/L (15-37) Alanine Aminotransferase (ALT/SGPT) 27 U/L (12-78) Alkaline Phosphatase 47 U/L (45-117) Total Protein 7.7 gm/dl (6.4-8.2) Albumin 3.0 gm/dl (3.4-5.0) Globulin 4.7 gm/dl (2.5-4.0) Albumin/Globulin Ratio 0.6 (0.9-2) Thyroid Stimulating Hormone (TSH) 15.000 uIu/ml (0.300-4.500) Free Thyroxine 0.92 ng/dl (0.80-1.60) Thyroxine (T4) 6.3 mcg/dl (4.5-10.9) Date/Time Source Procedure Growth Status 02/11/18 14:08 Blood Blood Culture - Preliminary NO GROWTH TO DATE. Resulted 02/11/18 16:15 Urine,Catheterized Urine Culture - Final NO GROWTH - LESS THAN 1,000 COLONIES/ML Complete Hemoglobin A1c Test 02/13/18 08:37 Range/Units Estimated Average Glucose 171 mg/dl Hemoglobin A1c 7.6 H 4.5-5.6 % Medical Emergencies . Who to Call and When: Medical Emergencies: If at any time you feel your situation is an emergency, please call 911 immediately. . Non-Emergent Contact Non-Emergency issues call your: Primary Care Provider Call Non-Emergent contact if: you have any medication questions . . "Provider Documentation" section prepared by Ron Agrawal. .
[2018-02-14] MEDS ORDERED: NICO14DI5 TD ×2 (15:07→15:17)
--- NOTE | 2018-02-14 15:08 | Discharge Summary ---
Discharge Summary Date of Service Feb 14, 2018. Discharge Summary Admission Date: Feb 11, 2018 at 18:18 Discharge Date: Feb 14, 2018 Discharge Disposition: Home Principal Diagnosis: Hyponatremia Newly diagnosed diabetes mellitus type II with hemoglobin A1c Hypothyroidism Secondary Diagnoses/Problems: Generalized weakness suspected bronchitis but ruled out Medication Reconciliation New Medications: Levothyroxine Sodium (Synthroid) 25 Mcg Tab 25 MCG PO DAILY for 30 Days, #30 TAB Metformin HCl (Metformin HCl) 500 Mg Tab 1 TAB OR DAILY for 30 Days, #30 TAB Continued Medications: Aspirin (Aspirin) 325 Mg Tab 325 MG PO DAILY Discontinued Medications: Cephalexin Monohydrate (Keflex) 500 Mg Cap 500 MG PO TID for 7 Days, #21 CAP Sulfa/Trimethoprim (Bactrim Ds 800MG/160MG) Tab 1 TAB PO BID for 7 Days, #14 TAB Admission Information HPI (per Admitting provider): She is a 58-year-old obese female with significant past medical history of toe kyphosis with multiple joint surgery in the past and apparently she was seen in ER last for a hand while which was drained and she was put on oral Keflex and Bactrim. She took the medicine for 3 days neuro and she was not feeling any better, complaining of increasing weakness tiredness and passing more urine without any dysuria she also complained to have feverish feeling with sweating at times and pain in multiple joints and also headache associated with it. She continues to smoke and she has cough,nonproductive with wheezing at times. In the ER she was afebrile with minimal elevated white count and unremarkable chest x-ray and/or in the examination but her sodium was noted to be 129. From that point she was admitted to medical floor for continuation of care with the possible diagnosis of acute bronchitis on top of hyponatremia. Physical Exam (per Admitting): General Appearance: + mild distress Head: normocephalic Eyes: normal inspection ENT: normal ENT inspection Neck: supple, no adenopathy, thyroid normal Respiratory/Chest: + decreased breath sounds, + rhonchi, + wheezing Cardiovascular: regular rate, rhythm Abdomen/GI: normal bowel sounds, non tender Back: normal inspection Extremities/Musculoskelatal: + pedal edema (Bilateral Lymphedema) Neurologic/Psych: normal mood/affect, normal reflexes Skin: normal color Lymphatic: no adenopathy Hospital Course Hospital Course and Plans Hyponatremia reports polyuria - has low urine osmolality on admission admission serum sodium 129 and resolved after IV fluids. IV fluids stopped. However by the AM of 02/13/18 subsequent serum sodium again 129 Nephrology consult evaluated the patient serum sodium 131 on 02/14/18 urine osmolality improved from 117 to 159 Reported fever and chills; generalized weakness patient's body temperature does not appear to meet criteria for low grade fevers but has been mildly above 100F there is a leukocytosis above 10,000; empirically have been on Levaquin at beginning of this admission for possible bronchitis. No acute infiltration on admission chest x-ray; ESR, CRP are elevated but admission blood and urine cultures without bacteria Levaquin was discontinued on 02/13/18 as there was no source of infection identified TSH of 15 with normal T4 of 6.4 suggests diagnosis of hypothyroidism patient will be started on prescription of Levothyroxine 25 mcg daily patient will need to have follow up with primary care doctor and have thyroid levels rechecked Newly diagnosed diabetes mellitus type II with hemoglobin A1c 7.6 patient will be started on prescription of metformin patient will need to follow up with primary care doctor on diabetes management History of arthrogryposis with multiple joint surgery Patient is mobile with the wheelchair has bilateral lymphedema as well has been on aspirin 325 mg prevent any thrombosis (prior to admission d/t hx of stroke 2 yrs ago at [facility]) patient has declined to work with physical therapy services Tobacco use disorder Advised to quit smoking nicotine patch Hyponatremia Newly diagnosed diabetes mellitus type II with hemoglobin A1c Hypothyroidism Discharge diagnosis Hyponatremia Newly diagnosed diabetes mellitus type II with hemoglobin A1c Hypothyroidism Generalized weakness suspected bronchitis but ruled out Discharge Instructions Discharge to home patient will be started on prescription of metformin patient will be started on prescription of Levothyroxine 25 mcg daily patient will need to have follow up with primary care doctor and have thyroid levels rechecked Newly diagnosed diabetes mellitus type II with hemoglobin A1c 7.6 patient will be started on prescription of metformin patient will need to follow up with primary care doctor on diabetes management Patient has new primary care doctor appointment on 02/18/2018 11:00 AM Mirela Reynoso MD Internal Medicine [facility] Address: [address] [place] [id number] Total time spent on discharge = 40 minutes This includes examination of the patient, discharge planning, medication reconciliation, and communication with other providers. Discharge Instructions see above
[2018-02-14 15:36] VITALS: BP 157/74; PULSE 80; TEMP 36.6; O2SAT 95
[2018-02-14 16:10] VITALS: BP 157/74; PULSE 80; TEMP 36.6; O2SAT 95
--- NOTE | 2018-02-14 17:10 | PROGRESS NOTE ---
DATE: 02/14/2018 SUBJECTIVE: No new symptoms overnight, although she has a multitude of complaints including arthralgias, myalgias, fatigue, poor appetite, nausea. Sodium this morning was 131, and it does not appear that her symptoms are correlated with low sodium at all. OBJECTIVE: HEENT: Mucous membranes moist. NECK: Supple. No jugular venous distention. CHEST: Bilaterally clear to auscultation although very diminished breath sounds. CARDIOVASCULAR SYSTEM: S1 and S2 distant. GASTROINTESTINAL: Abdomen is soft, nontender, and obese. VASCULAR: Extremities show 1+ edema. LABORATORY DATA: Laboratory tests from this morning show sodium 131, potassium 4.1, BUN 10, creatinine 0.6. TSH is 15. ASSESSMENT AND PLAN: A 58-year-old female with multiple problems with hyponatremia. 1. Hyponatremia. This is what we have been consulted for. It seems very mild problem. On detailed dietary interview, it seems she drinks a massive amount of liquid, which totals at least 150 ounces per day. Not every person can handle the high fluid intake in an ideal way. A lot of people have some relative urinary dilution problem, and I believe this is what we are witnessing here. I do not think she needs a salt tablet or a Lasix at this time. The first thing to do would be to decrease the fluid intake from very high to normal intake. She does not even need a true fluid restriction. At this time, she is drinking about 150-200 ounces per day, so if she can cut it down even to 70 ounces per day, that will be enough to get her serum sodium higher than 130. 2. Another problem is her TSH is quite high at 15. May be there is some component of hypothyroidism to her symptomatology, but I will defer this to primary team.
== END 2018-02-14 16:36 | disposition home or self-care (01) | DRG 641 ==
LOC: EDBD 12:32 → C.EDB 12:33 → ENRESERV 18:06 → C.MS4W 18:18 → EDBEDREQ 18:19 → ENRESERV 19:03
PROVIDERS: ADMIT Internal Medicine; ATTEND Hospitalist
DX: E87.1 Hypo-osmolality and hyponatremia (principal); Z68.43 Body mass index [BMI] 50.0-59.9, adult; E11.9 Type 2 diabetes mellitus without complications; E03.9 Hypothyroidism, unspecified; R50.9 Fever, unspecified; R53.1 Weakness; I89.0 Lymphedema, not elsewhere classified; Q68.8 Other specified congenital musculoskeletal deformities; F17.210 Nicotine dependence, cigarettes, uncomplicated; E66.01 Morbid (severe) obesity due to excess calories; Z99.3 Dependence on wheelchair; Z86.73 Personal history of transient ischemic attack (TIA), and cerebral infarction without residual deficits; Z87.39 Personal history of other diseases of the musculoskeletal system and connective tissue; Z79.82 Long term (current) use of aspirin